=== PATIENT | female | born 1995 | race Caucasian/White ===

== ENCOUNTER 2016-04-04 22:07 | Emergency (ER) | payer OTHER ==
[~2016-04-04] VITALS: Ht 121.9 cm; Wt 60.0 kg
[~2016-04-04 22:07] MED LIST: BUSP10TA2 PO; LURA40TA PO; NIFE10CA19 PO; PRENAT PO
[2016-04-04 22:34] VITALS: Ht 121.9 cm; Wt 60.0 kg
[2016-04-04] MEDS ORDERED: SOD CHLORIDE 0.9% 1,000 ML IV STA (23:27)
[2016-04-04] MEDS ORDERED: CEFTRIAXONE 1 GM/50 ML (PMX) 50 ML IVPB STA (23:27)
[2016-04-04] MEDS ORDERED: morphine 4 MG/ML VIAL IV STA (23:27)
[2016-04-04] MEDS ORDERED: ONDANSETRON 4 MG INJ IV STA (23:27)
[2016-04-05 00:14] LABS: ADD UMIC NO; URINE BILIRUBIN (Dip) NEGATIVE (NEGATIVE); URINE BLOOD (Dip) NEGATIVE (NEGATIVE); URINE COLOR LT. YELLOW (YELLOW); URINE GLUCOSE (Dip) NEGATIVE (NEGATIVE); URINE KETONES (Dip) NEGATIVE (NEGATIVE); URINE LEUKOCYTE ESTERASE (Dip) NEGATIVE (NEGATIVE); URINE NITRITE (Dip) NEGATIVE (NEGATIVE); URINE TOTAL PROTEIN (Dip) NEGATIVE (NEGATIVE); URINE UROBILINOGEN (Dip) 0.2 E.U./dL (0.1-1.0)
[2016-04-05 00:16] LABS: INR 0.92; PARTIAL THROMBOPLASTIN TIME 25.6 Sec (25.0-35.0); POTASSIUM 3.8 mmol/L (3.5-5.1); PROTIME 12.4 Sec (12.2-14.2)
[2016-04-05 00:19] LABS: CREATININE 0.65 mg/dl (0.44-1.00)
[2016-04-05 00:20] LABS: CALCIUM 9.5 mg/dl (8.4-10.2)
[2016-04-05 00:26] LABS: BASOPHIL # 0.1 10^3/ul (0.0-0.1); BASOPHILS % 0.6 % (0.0-2.0); EOSINOPHILS # 0.2 10^3/ul (0.0-0.5); HEMATOCRIT 38.4 % (37.0-47.0); HEMOGLOBIN 13.2 g/dl (12.0-16.0); LYMPHOCYTES # 3.4 10^3/ul (0.8-2.9); LYMPHOCYTES % 21.6 % (18.0-55.0); MEAN CORPUSCULAR HGB CONC 34.4 g/dl (32.0-37.0); MEAN CORPUSCULAR VOLUME 90.3 fl (72.0-104.0); MEAN PLATELET VOLUME 8.8 fl (7.4-10.4); MONOCYTE # 1.3 10^3/ul (0.3-0.9); NEUTROPHIL # 10.9 10^3/ul (1.6-7.5); NEUTROPHILS % 68.8 % (30.0-74.0); PLATELET COUNT 317 10^3/UL (140-440); RED BLOOD COUNT 4.25 10^6/ul (4.20-5.40); RED CELL DISTRIBUTION WIDTH 13.4 % (11.5-14.5); UNCORRECTED WBC 15.9 10^3/ul (4.8-10.8); WHITE BLOOD COUNT 15.9 10^3/ul (4.8-10.8)
[2016-04-05 00:30] LABS: CONDITION 1
[2016-04-05] MEDS ORDERED: morphine 4 MG/ML VIAL IV STA (00:50)
[2016-04-05] MEDS ORDERED: IOHEXOL 300MG/ML 150 ML BTL ONE (00:57)
[2016-04-05] MEDS ORDERED: SOD CHLORIDE 0.9% 100 ML ONE (00:57)
--- NOTE | 2016-04-05 01:39 | RADRPT ---
PROCEDURE: CT ABDOMEN/PELVIS WITH CONTRAST CLINICAL INDICATION: 20-year-old female with flank pain. TECHNIQUE: The study was performed utilizing a GE [employer] VCT 64-slice CT scanner. Direct axia l sections were obtained through the abdomen and pelvis with the use of 100 cc of Omnipaque-300 eduardo onic intravenous contrast material. Sagittal and coronal reformations were obtained. Automated expos ure control and iterative reconstruction techniques were utilized for this examination. The images were reviewed on a PACS workstation. CTD/vol = 6.0 mGy; Total Exam DLP = 328.8 mGy.cm. COMPARISON: Ultrasound pelvis April 05, 2016 at 01:09 a.m. FINDINGS: There is trace bibasilar subsegmental atelectasis. There is no evidence for significant pleural eff usion. The liver has a normal size and contour without focal areas of abnormal density or contrast enhancement. No intrahepatic nor extrahepatic biliary ductal dilatation is seen. The gallbladder dem onstrates no wall thickening nor pericholecystic fluid. No biliary stones are evident. The pancreas is without areas of abnormal attenuation or contrast enhancement. This spleen is identified and has a normal size without abnormal density or contrast enhancement. The adrenal glands are unremarkable . The kidneys are functional bilaterally without abnormal density. No hydroureteronephrosis nor neph roureterolithiasis is evident. The urinary bladder contains urine. There is mild retained stool with in the colon without obstruction. The appendix is visualized and is without edema or surrounding inf lammatory reaction. There is a partially collapsed right ovarian cyst measuring approximately 1.5 x 1.6 x 2.0 cm. There is mild pelvic free fluid. The aortoiliac vessels are without aneurysmal dilata tion. The osseous structures are intact. IMPRESSION: 1. Mild retained stool without obstruction. 2. No CT evidence for appendicitis. 3. Partially collapsed right ovarian cyst. 4. Mild pelvic free fluid. .Sloan Barnes MD, Date Time Electronically viewed and signed by .Sloan Barnes MD, MD on 04/05/2016 01:38 .M/
--- NOTE | 2016-04-05 01:41 | RADRPT ---
PROCEDURE: ULTRASOUND PELVIS CLINICAL INDICATION: 20-year-old female with pelvic pain. TECHNIQUE: Multiple sonographic images of the pelvis were obtained utilizing a transabdominal and endovaginal technique. The images were reviewed on a PACS workstation. COMPARISON: None. FINDINGS: The uterus is visualized and measures 7.4 x 3.7 x 5.7 cm. The endometrial echo complex is within nor mal limits and measures 7.0 mm. There is trace fluid within the endometrial canal. There is minimal pelvic free fluid. The right ovary has a normal echotexture and measures 3.1 x 2.0 x 2.3 cm. The l eft ovary has a normal echotexture and measures 4.0 x 2.2 x 2.8 cm. There is flow identified within the ovaries bilaterally. No adnexal masses are noted. IMPRESSION: Minimal pelvic free fluid.. .Sloan Barnes MD, Date Time Electronically viewed and signed by .Sloan Barnes MD, on 04/05/2016 01:41 .Melissa/
--- NOTE | 2016-04-05 01:55 | ERD ---
ER Documentation Chief Complaint Date/Time DATE: 04/04/16 Chief Complaint Flank pain HPI The patient is a 20-year-old female who presents to the Emergency Department with complaint of flank pain. The patient reports that her symptoms began yesterday, with onset of left-sided flank pain, dysuria, urinary frequency, urinary urgency and hesitancy. Upon waking up this morning, she noted pain to the right flank as well. She reports a history of pyelonephritis, for which she has been admitted the past, and feels as if her symptoms are similar. Therefore, she presented to the Emergency Department at [facility], at which time a urinalysis was performed, and she was subsequently discharged home with diagnosis of "urinary tract infection" and with a prescription for Clindamycin. However, upon returning home, she noted continued flank pain, and therefore returned to the ED, as she is concerned that she has pyelonephritis, and for pain control. She denies any hematuria or vaginal bleeding. Denies new vaginal discharge. Denies any fevers, vomiting, diarrhea. She rates her current pain as 7/10, though she has not yet taken any medication for pain relief. ROS All systems reviewed and are negative except as per history of present illness. Medications Home Meds Active Scripts Ibuprofen* (Motrin*) 600 Mg Tab, 600 MG PO Q6, #20 TAB Prov:JAQUELINE MARES PA-C 04/05/16 Phenazopyridine Hcl* (Pyridium*) 200 Mg Tab, 200 MG PO TID Y for URINARY PAIN for 2 Days, #6 TAB Prov:JAQUELINE MARES PA-C 04/05/16 Cephalexin* (Keflex*) 500 Mg Capsule, 500 MG PO QID for 7 Days, CAP Prov:JAQUELINE MARES PA-C 04/05/16 Hydrocodone/Acetaminophen ([place] 5-325 Tablet) 1 Each Tablet, 1 EACH PO Q6, #10 TAB Prov:JAQUELINE MARES PA-C 04/05/16 Reported Medications Nifedipine* (Procardia*) 10 Mg Capsule, 10 MG PO Q6, CAP 05/29/15 Multivit/Min/Fol Ac/Iron/Pren* ( S*) 1 Tab Tab, 1 TAB PO DAILY, TAB 05/17/15 Buspirone Hcl* (Buspirone Hcl*) 10 Mg Tab, 20 MG PO BID, TAB 05/17/15 Lurasidone Hcl (LATUDA) 40 Mg Tablet, 60 MG PO HS Y for BIPOLAR for 7 Days, TAB 03/29/15 Allergies Allergies: Coded Allergies: No Known Drug Allergies (Unverified Allergy, Unknown, 05/29/15) PMhx/Soc Anesthesia Reaction: No Hx Neurological Disorder: No Hx Respiratory Disorders: Yes (exercise induced asthma) Hx Cardiac Disorders: No Hx Psychiatric Problems: Yes (depression) Hx Miscellaneous Medical Probl: Yes (Pyelonephritis, sepsis) Hx Alcohol Use: No Hx Substance Use: No Hx Tobacco Use: Yes Smoking Status: Current every day smoker Physical Exam Vitals Vital Signs Date Time Temp Pulse Resp B/P Pulse Ox O2 Delivery O2 Flow Rate FiO2 04/05/16 02:08 98.1 77 18 103/53 99 Room Air 04/04/16 22:34 98.7 71 20 113/59 98 Physical Exam GENERAL: Well-developed, well-nourished, in no acute distress. HEENT: Head is normocephalic, atraumatic. No scleral pallor or icterus. Pupils equal, round and reactive to light. Conjunctiva pink. Moist mucous membranes. NECK: Supple. No masses, no tenderness, no lymphadenopathy. RESPIRATORY: Lungs are clear to auscultation bilaterally. Equal breath sounds. Normal expiratory effort. CARDIOVASCULAR: Regular rate and rhythm. S1 and S2 normal. No murmurs, rubs, or gallops. GASTROINTESTINAL: Abdomen is soft, and nondistended. Minimal tenderness to palpation over the suprapubic abdomen. No guarding, no rebound tenderness. Normal bowel sounds. No abdominal bruits. No gross peritonitis. No masses or organomegaly. FLANK: Left-sided CVA tenderness. No masses or swelling. BACK: No midline tenderness. No paraspinal tenderness. Spine curve normal. No deformities. EXTREMITIES: No clubbing, cyanosis, or edema. Normal skin perfusion. Moving all extremities. Muscle tone is normal. No focal swelling or erythema. Distal pulses are palpable, 2+ bilaterally. Capillary refill is less than 2 seconds. NEUROLOGIC: The patient is alert, awake, and oriented x 3. No focal neurologic deficits. Speech is normal. INTEGUMENT: Skin is clean, dry and intact. No rashes, lesions or petechiae present. Normal turgor. PSYCHIATRIC: Appropriate; Cooperative. Result Diagram: 04/04/16 2346 04/04/16 2346 Results 24 hrs Laboratory Tests Test 04/04/16 23:40 04/04/16 23:46 Urine Bilirubin NEGATIVE Urine Clarity CLEAR Urine Color LT. YELLOW Urine Glucose NEGATIVE% Urine Hemoglobin NEGATIVE Urine Ketones NEGATIVE Urine Leukocyte Esterase NEGATIVE Urine Nitrite NEGATIVE Urine Specific [place] >=1.030 Urine Total Protein NEGATIVE Urine Urobilinogen 0.2 E.U./dL Urine pH 6.0 Activated Partial Thromboplast Time 25.6Sec Anion Gap 18 Basophils # 0.110^3/ul Basophils % 0.6% Blood Urea Nitrogen 10mg/dl Calcium Level 9.5mg/dl Carbon Dioxide Level 26mmol/L Chloride Level 103mmol/L Creatinine 0.65mg/dl Eosinophils # 0.210^3/ul Eosinophils % 1.0% Glucose Level 87mg/dl Hematocrit 38.4% Hemoglobin 13.2g/dl INR International Normalized Ratio 0.92 Lipase 88U/L Lymphocytes # 3.410^3/ul Lymphocytes % 21.6% Mean Corpuscular Hemoglobin 31.0pg Mean Corpuscular Hemoglobin Concent 34.4g/dl Mean Corpuscular Volume 90.3fl Mean Platelet Volume 8.8fl Monocytes # 1.310^3/ul Monocytes % 8.0% Neutrophils # 10.910^3/ul Neutrophils % 68.8% Nucleated Red Blood Cells # 0.010^3/ul Nucleated Red Blood Cells % 0.0/100WBC Platelet Count 98193^3/UL Potassium Level 3.8mmol/L Prothrombin Time 12.4Sec Prothrombin Time Ratio 1.0 Red Blood Count 4.2510^6/ul Red Cell Distribution Width 13.4% Sodium Level 143mmol/L White Blood Count 15.910^3/ul Current Medications Medications (Trade) Dose Ordered Sig/Abida Route PRN Reason Start Time Stop Time Status Last Admin Dose Admin Sodium Chloride (NS) 1,000 ml @ 1,000 mls/hr Q1H STAT IV 04/04/16 23:27 04/05/16 00:26 DC 04/04/16 23:42 Morphine Sulfate (morphine) 4 mg ONCE STAT IV 04/04/16 23:27 04/04/16 23:29 DC 04/04/16 23:43 Ondansetron HCl 4 mg 4 mg ONCE STAT IV 04/04/16 23:27 04/04/16 23:29 DC 04/04/16 23:42 Ceftriaxone Sodium (Rocephin) 50 ml @ 100 mls/hr ONCE STAT IVPB 04/04/16 23:27 04/04/16 23:56 DC 04/04/16 23:44 Morphine Sulfate 4 mg 4 mg ONCE STAT IV 04/05/16 00:50 04/05/16 00:51 DC 04/05/16 01:01 Sodium Chloride (NS) 100 ml @ ud STK-MED ONCE .ROUTE 04/05/16 00:57 04/05/16 00:58 DC 04/05/16 01:24 Iohexol (Omnipaque 300mg/ ml) 150 ml STK-MED ONCE .ROUTE 04/05/16 00:57 04/05/16 00:58 DC 04/05/16 01:24 Procedures/MDM The patient's case was reviewed and discussed with Dr. Reilly, who agrees with the plan of care including labs, treatment and advanced imaging as appropriate. DIAGNOSTIC TESTS AND INTERPRETATION: PROCEDURE: CT ABDOMEN/PELVIS WITH CONTRAST CLINICAL INDICATION: 20-year-old female with flank pain. TECHNIQUE: The study was performed utilizing a [employer] VCT 64-slice CT scanner. Direct axial sections were obtained through the abdomen and pelvis with the use of 100 cc of Omnipaque-300 nonionic intravenous contrast material. Sagittal and coronal reformations were obtained. Automated exposure control and iterative reconstruction techniques were utilized for this examination. The images were reviewed on a PACS workstation. CTD/vol = 6.0 mGy; Total Exam DLP = 328.8 mGy.cm. COMPARISON: Ultrasound pelvis April 05, 2016 at 01:09 a.m. FINDINGS: There is trace bibasilar subsegmental atelectasis. There is no evidence for significant pleural effusion. The liver has a normal size and contour without focal areas of abnormal density or contrast enhancement. No intrahepatic nor extrahepatic biliary ductal dilatation is seen. The gallbladder demonstrates no wall thickening nor pericholecystic fluid. No biliary stones are evident. The pancreas is without areas of abnormal attenuation or contrast enhancement. This spleen is identified and has a normal size without abnormal density or contrast enhancement. The adrenal glands are unremarkable. The kidneys are functional bilaterally without abnormal density. No hydroureteronephrosis nor nephroureterolithiasis is evident. The urinary bladder contains urine. There is mild retained stool within the colon without obstruction. The appendix is visualized and is without edema or surrounding inflammatory reaction. There is a partially collapsed right ovarian cyst measuring approximately 1.5 x 1.6 x 2.0 cm. There is mild pelvic free fluid. The aortoiliac vessels are without aneurysmal dilatation. The osseous structures are intact. IMPRESSION: 1. Mild retained stool without obstruction. 2. No CT evidence for appendicitis. 3. Partially collapsed right ovarian cyst. 4. Mild pelvic free fluid. .Sloan Barnes MD, Date Time Electronically viewed and signed by .Sloan Barnes MD, MD on 04/05/2016 01:38 PROCEDURE: ULTRASOUND PELVIS CLINICAL INDICATION: 20-year-old female with pelvic pain. TECHNIQUE: Multiple sonographic images of the pelvis were obtained utilizing a transabdominal and endovaginal technique. The images were reviewed on a PACS workstation. COMPARISON: None. FINDINGS: The uterus is visualized and measures 7.4 x 3.7 x 5.7 cm. The endometrial echo complex is within normal limits and measures 7.0 mm. There is trace fluid within the endometrial canal. There is minimal pelvic free fluid. The right ovary has a normal echotexture and measures 3.1 x 2.0 x 2.3 cm. The left ovary has a normal echotexture and measures 4.0 x 2.2 x 2.8 cm. There is flow identified within the ovaries bilaterally. No adnexal masses are noted. IMPRESSION: Minimal pelvic free fluid.. .Sloan Barnes MD, Date Time Electronically viewed and signed by .Sloan Barnes MD, on 04/05/2016 01:41 ED COURSE: The patient was stable throughout the ED course. IV access established by nursing staff. Laboratory work and diagnostic imaging was performed. The patient was given Morphine, Zofran and IV fluids. Rocephin 1 gram IV administered for presumed early UTI vs. pyelonephritis. Urine culture sent. On reevaluation the patient was resting comfortably, with no signs of acute distress. MEDICAL DECISION MAKING: This is a 20-year-old female presenting to the Emergency Department with dysuria, urinary frequency and urgency, and flank pain since yesterday. On physical examination, the patient had mild tenderness to palpation over the suprapubic abdomen. She had left-sided CVA tenderness. Otherwise, she was nontoxic in appearance, with no evidence of dehydration. She was afebrile, with no tachycardia, no tachypnea, no hypotension. The differential diagnosis includes, but is not limited to, urinary tract infection , renal abscess, perinephric abscess, urethritis, nephrolithiasis, salpingitis, cervicitis, pelvic inflammatory disease, diverticulitis, cystitis, cholecystitis , appendicitis, abdominal aortic aneurysm/dissection, pyelonephritis. Laboratory analysis revealed WBC 15,900. No severe anemia requiring transfusion. Electrolytes are within normal limits, no indication for replacement. BUN/creatinine and creatinine are normal, no prerenal azotemia or acute kidney injury. Urinalysis revealed no bloody, no nitrites, no urine leukocyte esterase. CT abdomen and pelvis revealed mild constipation, and a partially collapsed right ovarian cyst. Otherwise, no evidence of appendicitis , obstruction, abscess, obstructive uropathy. US with no evidence of torsion or abscess. Given that the patient presented with recent urinary symptoms and CVA tenderness , and given patient's history of pyelonephritis, there is concern that patient' s current symptoms are secondary to early urinary tract infection vs. early pyelonephritis. She was given 1 gram Rocephin IV in the ED for coverage. Urine culture sent. At this time, the patient is in stable condition, and therefore can be discharged home with a prescription for Keflex, Pyridium, ibuprofen and [place] and strict return precautions for signs of deteriorating or worsening condition. The patient is advised to follow up with her primary care provider within 2-3 days for re-evaluation and further management, or return to the ER sooner for any worsening symptoms. I shared all laboratory results, medical decision making and plan with the patient at length and in great detail , and the patient verbally understands and agrees with the plan for further observation and care as an outpatient. At the time of discharge, all questions were answered. Departure Diagnosis: Primary Impression: Flank pain Additional Impressions: Dysuria Right ovarian cyst Condition: Stable Patient Instructions: Dysuria, Flank Pain, Uncertain Cause Additional Instructions: Call your primary care doctor TOMORROW for an appointment during the next 1-2 days.See the doctor sooner or return here if your condition worsens before your appointment time. JAQUELINE MARES PA-C Apr 05, 2016 01:55
[2016-04-05] MEDS ORDERED: HYDR-906 PO (01:56)
[2016-04-05] MEDS ORDERED: CEPH-443 PO (01:57)
[2016-04-05] MEDS ORDERED: IBUP-1542 PO (01:57)
[2016-04-05] MEDS ORDERED: PHEN-538 PO (01:57)
[2016-04-05 02:08] VITALS: BP 103/53
== END 2016-04-05 02:08 | disposition home or self-care (01) ==
LOC: FTE 22:07
DX: R10.9 Unspecified abdominal pain (principal); R30.0 Dysuria; N83.201 Unspecified ovarian cyst, right side; F17.210 Nicotine dependence, cigarettes, uncomplicated; R10.2 Pelvic and perineal pain
CPT/HCPCS: 36415; 74177; 76856; 80048; 81003; 83690; 85025; 85610; 85730; 87086; 96361; 96365; 96375; 96376; J0696; J2270; J2405; J7030; Q9967; Z7502; Z7610

== ENCOUNTER 2016-04-17 18:43 | Emergency (ER) | payer OTHER ==
[~2016-04-17] VITALS: Ht 162.6 cm; Wt 54.5 kg
[~2016-04-17 18:43] MED LIST changes: +CEPH-443 PO; +HYDR-906 PO; +IBUP-1542 PO; +PHEN-538 PO
[2016-04-17 18:50] VITALS: Ht 162.6 cm; Wt 54.5 kg
[2016-04-17] MEDS ORDERED: ONDANSETRON 4 MG INJ IV STA ×2 (19:39→21:10)
[2016-04-17] MEDS ORDERED: KETOROLAC 30 MG INJ IV STA (19:39)
[2016-04-17] MEDS ORDERED: SOD CHLORIDE 0.9% 1,000 ML IV STA (19:39)
[2016-04-17 20:24] LABS: ADD UMIC NO; URINE BILIRUBIN (Dip) NEGATIVE (NEGATIVE); URINE BLOOD (Dip) NEGATIVE (NEGATIVE); URINE COLOR LT. YELLOW (YELLOW); URINE GLUCOSE (Dip) NEGATIVE (NEGATIVE); URINE KETONES (Dip) NEGATIVE (NEGATIVE); URINE LEUKOCYTE ESTERASE (Dip) NEGATIVE (NEGATIVE); URINE NITRITE (Dip) NEGATIVE (NEGATIVE); URINE TOTAL PROTEIN (Dip) NEGATIVE (NEGATIVE); URINE UROBILINOGEN (Dip) 0.2 E.U./dL (0.1-1.0)
[2016-04-17 20:29] LABS: ALBUMIN 4.9 g/dl (3.3-4.9)
[2016-04-17 20:30] LABS: POTASSIUM 3.6 mmol/L (3.5-5.1)
[2016-04-17 20:32] LABS: ALBUMIN/GLOBULIN RATIO 1.32; BILIRUBIN,INDIRECT 0.5 mg/dl (0-1.1); BILIRUBIN,TOTAL 0.5 mg/dl (0.2-1.3); CREATININE 0.76 mg/dl (0.44-1.00); TOTAL PROTEIN 8.6 g/dl (6.1-8.1)
[2016-04-17 20:33] LABS: CALCIUM 9.9 mg/dl (8.4-10.2)
[2016-04-17] MEDS ORDERED: DOCU-144 PO (21:09)
[2016-04-17] MEDS ORDERED: NITR-58 PO (21:09)
[2016-04-17] MEDS ORDERED: HYDR-902 PO (21:09)
[2016-04-17] MEDS ORDERED: morphine 4 MG/ML VIAL IV STA (21:10)
--- NOTE | 2016-04-17 21:16 | ERD ---
ER Documentation Chief Complaint Date/Time DATE: 04/17/16 TIME: 21:12 Chief Complaint painful urination, back pain HPI 20-year-old female history of pyelonephritis comes emergency room with painful urination as well as left-sided flank pain. Patient was discharged with Keflex about 12 days ago, previously she was seen at a different emergency room at [facility] and was started on the wrong antibiotics. She states that she was feeling better for several days and then her symptoms returned and she reports of nausea vomiting at home. She denies fevers, chills, she continues to have left-sided flank pain that is dull and achy, nonradiating, constant. ROS All systems reviewed and are negative except as per history of present illness. Medications Home Meds Active Scripts Docusate Sodium* (Colace*) 100 Mg Capsule, 100 MG PO TID, #30 CAP Prov:CHOCO AVILA PA-C 04/17/16 Hydrocodone/Acetaminophen ([place] 10-325 Tablet) 1 Each Tablet, 1 TAB PO Q6H Y for PAIN, #7 TAB Prov:CHOCO AVILA PA-C 04/17/16 Nitrofurantoin Monohyd Macrocr* (Macrobid*) 100 Mg Capsr, 100 MG PO BID for 7 Days, CAP Prov:CHOCO AVILA PA-C 04/17/16 Ibuprofen* (Motrin*) 600 Mg Tab, 600 MG PO Q6, #20 TAB Prov:JAQUELINE MARES PA-C 04/05/16 Phenazopyridine Hcl* (Pyridium*) 200 Mg Tab, 200 MG PO TID Y for URINARY PAIN for 2 Days, #6 TAB Prov:JAQUELINE MARES PA-C 04/05/16 Cephalexin* (Keflex*) 500 Mg Capsule, 500 MG PO QID for 7 Days, CAP Prov:JAQUELINE MARES PA-C 04/05/16 Hydrocodone/Acetaminophen ([place] 5-325 Tablet) 1 Each Tablet, 1 EACH PO Q6, #10 TAB Prov:JAQUELINE MARES PA-C 04/05/16 Reported Medications Nifedipine* (Procardia*) 10 Mg Capsule, 10 MG PO Q6, CAP 05/29/15 Multivit/Min/Fol Ac/Iron/Pren* ( S*) 1 Tab Tab, 1 TAB PO DAILY, TAB 05/17/15 Buspirone Hcl* (Buspirone Hcl*) 10 Mg Tab, 20 MG PO BID, TAB 05/17/15 Lurasidone Hcl (LATUDA) 40 Mg Tablet, 60 MG PO HS Y for BIPOLAR for 7 Days, TAB 03/29/15 Allergies Allergies: Coded Allergies: No Known Drug Allergies (Unverified Allergy, Unknown, 05/29/15) PMhx/Soc Anesthesia Reaction: No Hx Neurological Disorder: No Hx Respiratory Disorders: Yes (exercise induced asthma) Hx Cardiac Disorders: No Hx Psychiatric Problems: Yes (depression, anxiety) Hx Miscellaneous Medical Probl: Yes (Pyelonephritis, sepsis) Hx Alcohol Use: No Hx Substance Use: No Hx Tobacco Use: Yes Smoking Status: Never smoker Physical Exam Vitals Vital Signs Date Time Temp Pulse Resp B/P Pulse Ox O2 Delivery O2 Flow Rate FiO2 04/17/16 18:50 98.4 72 20 155/62 100 Physical Exam General: Well-developed, well-nourished. The patient appears in no acute distress. HEENT: Head is normocephalic, atraumatic. No scleral icterus. Neck: Supple. Nontender. Lungs: Clear to auscultation. Normal air movement. Heart: Regular rate and rhythm. S1 and S2 are normal. No murmurs, gallops, or rubs. Abdomen: Soft, suprapubic tenderness, nondistended. Bowel sounds are normoactive. No McBurney's tenderness, negative [place] sign. Back: Mild CVA tenderness on left, no midline tenderness. Extremities: No clubbing or cyanosis. Normal pulses. Moving extremities x 4. No weakness. Neurologic: Alert and oriented 3. No focal deficits. Skin: Normal turgor. No rash or lesions. Result Diagram: 04/17/161956 Results 24 hrs Laboratory Tests Test 04/17/16 19:55 04/17/16 19:57 Urine Bilirubin NEGATIVE Urine Clarity CLEAR Urine Color LT. YELLOW Urine Glucose NEGATIVE% Urine Hemoglobin NEGATIVE Urine Ketones NEGATIVE Urine Leukocyte Esterase NEGATIVE Urine Nitrite NEGATIVE Urine Specific [place] >=1.030 Urine Total Protein NEGATIVE Urine Urobilinogen 0.2 E.U./dL Urine pH 5.5 Alanine Aminotransferase (ALT/SGPT) 31IU/L Albumin 4.9g/dl Albumin/Globulin Ratio 1.32 Alkaline Phosphatase 71IU/L Anion Gap 20 Aspartate Amino Transf (AST/SGOT) 22IU/L Blood Urea Nitrogen 13mg/dl Calcium Level 9.9mg/dl Carbon Dioxide Level 27mmol/L Chloride Level 101mmol/L Creatinine 0.76mg/dl Direct Bilirubin 0.00mg/dl Globulin 3.70g/dl Glucose Level 97mg/dl Indirect Bilirubin 0.5mg/dl Potassium Level 3.6mmol/L Sodium Level 144mmol/L Total Bilirubin 0.5mg/dl Total Protein 8.6g/dl Current Medications Medications (Trade) Dose Ordered Sig/Abida Route PRN Reason Start Time Stop Time Status Last Admin Dose Admin Sodium Chloride (NS) 1,000 ml @ 1,000 mls/hr Q1H STAT IV 04/17/16 19:39 04/17/16 20:38 DC 04/17/16 20:16 Ondansetron HCl (Zofran Inj) 4 mg ONCE STAT IV 04/17/16 19:39 04/17/16 19:41 DC 04/17/16 20:15 Ketorolac Tromethamine (Toradol) 30 mg ONCE STAT IV 04/17/16 19:39 04/17/16 19:41 DC 04/17/16 20:15 Morphine Sulfate (morphine) 4 mg ONCE STAT IV 04/17/16 21:10 04/17/16 21:12 DC Ondansetron HCl (Zofran Inj) 4 mg ONCE STAT IV 04/17/16 21:10 04/17/16 21:12 DC Procedures/MDM ED course: Patient was given fluids, Toradol 30 mg IV, Zofran 4 mg IV. She states that her pain did not improve much and therefore was given morphine 4 mg and Zofran 4 mg IV. I reviewed her old medical records, urine culture does show positive E. coli, sensitivity to cephalosporins as well as Macrobid. MDM: A 20-year-old female comes in with symptoms of possibly pyelonephritis, she does not have a fever, however she has been having some nausea vomiting at home. She was given fluids, as well as pain medication and she was reporting to be feeling much better. She has had a urinalysis that does not show evidence of infection however may be due to the recent intake of Keflex. She will be given Macrobid to be taken at home, as well as [place] for pain. CT of the abdomen and pelvis was done at previous visit that showed a right ovarian cyst, no evidence of nephrolithiasis, and noted to have constipation and therefore patient will also be given Colace as her pain may also be related to the constipation. She did state that she was feeling better for some time and her pain returned, this may be a new infection as well. Given that she is well-appearing, nontoxic I believe that the patient is appropriate to be discharged. Departure Diagnosis: Primary Impression: Flank pain Additional Impression: Constipation Condition: Good Patient Instructions: Constipation (Adult), Flank Pain, Uncertain Cause CHOCO AVILA PA-C Apr 17, 2016 21:16
[2016-04-17 22:52] VITALS: BP 107/52
[2016-04-17 23:21] LABS: HEMATOCRIT 43.7 % (37.0-47.0); HEMOGLOBIN 14.6 g/dl (12.0-16.0); MEAN CORPUSCULAR HEMOGLOBIN 30.9 pg (29.0-33.0); MEAN CORPUSCULAR VOLUME 92.6 fl (72.0-104.0); RED BLOOD COUNT 4.72 10^6/ul (4.20-5.40)
[2016-04-17 23:22] LABS: BASOPHIL # 0.1 10^3/ul (0.0-0.1); BASOPHILS % 0.5 % (0.0-2.0); EOSINOPHILS # 0.2 10^3/ul (0.0-0.5); EOSINOPHILS % 1.4 % (0.0-7.0); LYMPHOCYTES # 3.3 10^3/ul (0.8-2.9); LYMPHOCYTES % 30.1 % (18.0-55.0); MEAN CORPUSCULAR HGB CONC 33.4 g/dl (32.0-37.0); MONOCYTE # 1.2 10^3/ul (0.3-0.9); MONOCYTES % 10.5 % (0.0-13.0); NEUTROPHIL # 6.3 10^3/ul (1.6-7.5); PLATELET COUNT 347 10^3/UL (140-440)
== END 2016-04-17 22:53 | disposition home or self-care (01) ==
LOC: FTE 18:43
DX: R10.30 Lower abdominal pain, unspecified (principal); K59.00 Constipation, unspecified; R11.2 Nausea with vomiting, unspecified; J45.909 Unspecified asthma, uncomplicated; Z87.891 Personal history of nicotine dependence
CPT/HCPCS: 36415; 80053; 81003; 85025; 87086; 96374; 96375; 96376; J1885; J2270; J2405; J7030; Z7502

== ENCOUNTER 2016-04-25 08:40 | Emergency (ER) | payer OTHER ==
[~2016-04-25] VITALS: Wt 59.0 kg
[~2016-04-25 08:40] MED LIST changes: +DOCU-144 PO; +HYDR-902 PO; +NITR-58 PO
[2016-04-25] MEDS ORDERED: ONDANSETRON (ODT) 4 MG TAB ODT STA (09:13)
[2016-04-25 09:31] LABS: URINE BLOOD (Dip) POC Trace-intact (NEGATIVE)
[2016-04-25] MEDS ORDERED: SOD CHLORIDE 0.9% 1,000 ML IV STA (09:50)
[2016-04-25] MEDS ORDERED: MECLIZINE 12.5 MG TAB PO ONE (11:30)
--- NOTE | 2016-04-25 11:36 | RADRPT ---
PROCEDURE: CT Brain without contrast. CLINICAL INDICATION: Dizziness. TECHNIQUE: A CT of the brain without contrast was performed utilizing axial sections from the skul l base through the vertex. The patient was scanned without intravenous contrast enhancement. Sagitta l and coronal reformatted images were obtained using the data from the axial images. Total exam DLP is 451.49 mGy-cm. CTDIvol is 32.25 mGy. One or more of the following dose reduction techniques we re used: Automated exposure control, adjustment of the mA and/or kV according to patient size, use o f iterative reconstruction technique. COMPARISON: None available FINDINGS: There is normal wyatt-white matter differentiation. The ventricles and cisterns are normal. There is no intracranial hemorrhage or space-occupying lesion. There is no skull fracture or lytic lesion. IMPRESSION: 1. Normal noncontrast CT scan of the brain. RPTAT: QQ .Alo Car MD, MD Date Time Electronically viewed and signed by .Alo Car MD, MD on 04/25/2016 11:36 .R/
[2016-04-25] MEDS ORDERED: ONDA4TAB8 PO (11:47)
[2016-04-25] MEDS ORDERED: MECL12.574 PO (11:47)
[2016-04-25 12:34] VITALS: BP 125/63
--- NOTE | 2016-04-25 14:31 | ERD ---
DATE OF SERVICE: 04/25/2016 HISTORY OF PRESENT ILLNESS: The patient is a 20-year-old female coming in complaining of cough, con gestion, sore throat. She is also complaining of dizziness and vomiting. She denies any abdominal pain. She denies fevers. She recently had a urinary tract infection and was given antibiotics. Sh e states that her symptoms have improved. She has no back pain and no dysuria or urinary frequency. She has been taking Keflex. Denies any changes in bowel movements and no vomiting. MEDICAL HISTORY: Depression with no suicidal or homicidal ideations. ALLERGIES TO MEDICATIONS: DENIES. PAST SURGICAL HISTORY: . SOCIAL HISTORY: Smokes 3 cigarettes a day. REVIEW OF SYSTEMS: A 12-point review of systems was done. Refer to HPI for positives, all other sy stems negative. PHYSICAL EXAMINATION VITAL SIGNS: Temperature is 98.8, pulse 94, blood pressure is 131/57, respiratory 20, O2 saturation 100% on room air. Pain intensity 6/10. GENERAL: The patient is well-appearing, well-nourished, no acute distress. HEENT: Atraumatic. Conjunctivae are pink. Pupils equal, round, and reactive to light. There is no s cleral icterus. Tympanic membranes clear bilaterally. Oropharynx clear. No nystagmus or photophobia . NECK: C-spine is soft and supple. There is no meningismus. There is no cervical lymphadenopathy. No JVD. No bruits. No goiter. CHEST: Clear to auscultation bilaterally. There are no rales, wheezes or rhonchi. HEART: Regular rate and rhythm. No murmurs, clicks, rubs or gallops. No S3 or S4. ABDOMEN: Soft, nontender and nondistended. Good bowel sounds. No rebound or guarding. No gross angel tonitis. No gross organomegaly or masses. No Alcantara sign or McBurney point tenderness. NEURO: Alert and oriented. Cranial nerves 2-12 intact. Motor strength in all 4 extremities with 5/5 strength. Sensation grossly intact. Normal speech and gait. Babinski negative. DTR 2+ throughout. SKIN: There is no apparent rash or petechia. The skin is warm and dry. EMERGENCY ROOM COURSE: The patient had a urine dip checked in the ER. Patient's urine showed negat jaguar leukocytes, negative nitrites, trace blood, negative ketones, negative glucose, negative protein . The patient had a brain CT done in the ER which showed normal noncontrast CT scan of the brain. Patient was given a liter of normal saline, Zofran and p.o. challenge, which she passed and meclizin e. Patient's vitals were reassessed at the time of departure. Pulse is 80 beats per minute and blo od pressure was 125/63, oxygen saturation 100% on room air. Pain intensity of 2/10. Patient's symp toms improved. The patient had an EKG done in the ER as well which was 70 beats per minute, normal right axis, no ST elevations or T-wave inversions, no QT prolongations. DIAGNOSES: 1. Vomiting. 2. Dizziness. 3. Upper respiratory infection. MEDICAL DECISION MAKING: I have low suspicion for intracranial hemorrhage or mass effect. I have l ow suspicion for neuro deficits. I have low suspicion for meningitis or sepsis and low suspicion fo r bacterial HEENT infection or pneumonia. I have low suspicion for pyelo or other acute abdominal e tiologies. I did not feel that there is indication of imaging for the abdomen as patient's exam is within normal limits and the patient is tolerating p.o. DISCHARGE: The patient is discharged stable. Patient given prescription for Zofran and meclizine a nd told to follow up with primary care within 1 to 2 days for reevaluation. The patient was told if symptoms progress or worsen to return to the ER. All other questions answered at time of discharge . Discharge summary given at the time of departure. Patient understood and complied with plan. Reviewed and signed off by Dr. Almodovar. Dictated By: CYNTHIA RODRIGUEZ for YAN KING/NTS Conf#: [id number] DID#: [id number]
== END 2016-04-25 12:35 | disposition home or self-care (01) ==
LOC: FTE 08:40
DX: R11.10 Vomiting, unspecified (principal); R42 Dizziness and giddiness; J06.9 Acute upper respiratory infection, unspecified
CPT/HCPCS: 70450; 81003; 93005; J7030; Z7502; Z7610

== ENCOUNTER 2016-05-24 07:17 | Emergency (ER) | payer OTHER ==
[~2016-05-24] VITALS: Ht 149.9 cm; Wt 56.2 kg
[~2016-05-24 07:17] MED LIST changes: +MECL12.574 PO; +ONDA4TAB8 PO
[2016-05-24 07:20] VITALS: Ht 149.9 cm; Wt 56.2 kg
[2016-05-24] MEDS ORDERED: SOD CHLORIDE 0.9% 500 ML IV STA (07:51)
[2016-05-24] MEDS ORDERED: ONDANSETRON 4 MG INJ IV STA (07:51)
[2016-05-24] MEDS ORDERED: ACETAMINOPHEN 500 MG TAB PO STA (07:51)
[2016-05-24] MEDS ORDERED: IBUPROFEN 600 MG TAB PO ONE (08:00)
--- NOTE | 2016-05-24 08:05 | ERD ---
ER Documentation Chief Complaint Date/Time DATE: 05/24/16 TIME: 07:57 Chief Complaint FEVER, COUGH, CONGESTION, VOMITING, X3 DAYS HPI Patient is a 20-year-old female with a past medical history of anxiety, depression, asthma, "pseudoseizures" who presents the emergency department with numerous concerns including fever, cough, congestion and posttussive vomiting. Patient states that her symptoms started approximately 3 days ago. Patient states that her cough is dry in nature. Patient states that she has clear rhinorrhea. Patient does reports 2 episodes of posttussive vomiting this morning. Patient reports a temperature of 101 Fahrenheit yesterday. She states she took Tylenol at 3 AM today. Patient states that her kids were sick and she is unsure if she got something from her kids. Patient states her last menstrual period was in 05/10/2016. Patient admits to generalized body aches and a mild headache. Patient denies flu vaccination. ROS All systems reviewed and are negative except as per history of present illness. Medications Home Meds Active Scripts Oseltamivir Phosphate* (Tamiflu*) 75 Mg Capsule, 75 MG PO BID for 5 Days, CAP Prov:KATHLEEN CHRISTENSEN PA-C 05/24/16 Acetaminophen* (Tylophen*) 500 Mg Capsule, 2 CAP PO Q8H Y for PAIN AND OR ELEVATED TEMP, #20 CAP Prov:KATHLEEN CHRISTENSEN PA-C 05/24/16 Albuterol Sulfate* (Proair HFA*) 8.5 Gm Hfa.aer.ad, 2 PUFF INH Q4H Y for WHEEZING AND SOB, #1 INHALER Prov:KATHLEEN CHRISTENSEN PA-C 05/24/16 Guaifenesin* (Robitussin*) 100 Mg/5 Ml Syrup, 100 MG PO Q6H Y for COUGH, #1 BOTTLE Prov:KATHLEEN CHRISTENSEN PA-C 05/24/16 Ondansetron Hcl* (Zofran*) 4 Mg Tablet, 4 MG PO Q6H for NAUSEA AND/OR VOMITING, #30 TAB Prov:RAKESH SALDVIAR PA-C 04/25/16 Meclizine Hcl* (Antivert*) 12.5 Mg Tab, 12.5 MG PO Q6H Y for DIZZINESS, #20 TAB Prov:RAKESH SALDIVARC 04/25/16 Docusate Sodium* (Colace*) 100 Mg Capsule, 100 MG PO TID, #30 CAP Prov:CHOCO AVILA PA-C 04/17/16 Hydrocodone/Acetaminophen ([place] 10-325 Tablet) 1 Each Tablet, 1 TAB PO Q6H Y for PAIN, #7 TAB Prov:CHOCO AVILA PA-C 04/17/16 Nitrofurantoin Monohyd Macrocr* (Macrobid*) 100 Mg Capsr, 100 MG PO BID for 7 Days, CAP Prov:CHOCO AVILA PA-C 04/17/16 Ibuprofen* (Motrin*) 600 Mg Tab, 600 MG PO Q6, #20 TAB Prov:JAQUELINE MARES PA-C 04/05/16 Phenazopyridine Hcl* (Pyridium*) 200 Mg Tab, 200 MG PO TID Y for URINARY PAIN for 2 Days, #6 TAB Prov:JAQUELINE MARES PA-C 04/05/16 Cephalexin* (Keflex*) 500 Mg Capsule, 500 MG PO QID for 7 Days, CAP Prov:JAQUELINE MARES PA-C 04/05/16 Hydrocodone/Acetaminophen ([place] 5-325 Tablet) 1 Each Tablet, 1 EACH PO Q6, #10 TAB Prov:JAQUELINE MARES PA-C 04/05/16 Reported Medications Nifedipine* (Procardia*) 10 Mg Capsule, 10 MG PO Q6, CAP 05/29/15 Multivit/Min/Fol Ac/Iron/Pren* ( S*) 1 Tab Tab, 1 TAB PO DAILY, TAB 05/17/15 Buspirone Hcl* (Buspirone Hcl*) 10 Mg Tab, 20 MG PO BID, TAB 05/17/15 Lurasidone Hcl (LATUDA) 40 Mg Tablet, 60 MG PO HS Y for BIPOLAR for 7 Days, TAB 03/29/15 Allergies Allergies: Coded Allergies: No Known Drug Allergies (Unverified Allergy, Unknown, 05/29/15) PMhx/Soc Anesthesia Reaction: No Hx Neurological Disorder: No Hx Respiratory Disorders: Yes (exercise induced asthma) Hx Cardiac Disorders: No Hx Psychiatric Problems: Yes (depression, anxiety) Hx Miscellaneous Medical Probl: Yes (Pyelonephritis, sepsis) Hx Alcohol Use: No Hx Substance Use: No Hx Tobacco Use: Yes Smoking Status: Current every day smoker Fmx Family History: No diabetes Physical Exam Vitals Vital Signs Date Time Temp Pulse Resp B/P Pulse Ox O2 Delivery O2 Flow Rate FiO2 05/24/16 09:24 100.0 112 22 126/88 98 Room Air 05/24/16 07:20 102.0 116 20 117/78 98 Physical Exam GENERAL: Well-developed, well-nourished female. Appears in no acute distress. Making in full sentences. HEAD: Normocephalic, atraumatic. No deformities or ecchymosis. EYE: Pupils equal, round, and reactive to light. EOMs intact. No conjunctival erythema. No eye discharge. ENT: External ear without any masses or tenderness. Auditory canals clear bilaterally. TM visualized bilaterally, non-erythematous, non-bulging. Nasal mucosa pink with no discharge. Oropharynx is pink without any tonsillar erythema or exudates. No uvula deviation. No kissing tonsils. No bilateral mastoid process tenderness. NECK: Supple. No meningismus. Normal ROM of the neck. LUNG: Clear to auscultation bilaterally. No rhonchi, wheezing, rales or coarse breath sounds. HEART: Regular rate and rhythm. No murmurs, rubs or gallops. ABDOMEN: Soft, nontender, and nondistended. Positive bowel sounds in all four quadrants. No rebound tenderness, no guarding. (-) McBurney's point tenderness. No CVA tenderness. BACK: No midline tenderness. EXTREMITES: Equal pulses bilaterally. No peripheral clubbing, cyanosis or edema. No unilateral leg swelling. NEUROLOGIC: Alert and oriented to person, place and time. Moving all four extremities. 5/5 strength in all extremities. Normal speech. Steady gait. (-) Brudzinski sign- no flexion of the hips and knees noted with neck flexion. Negative Kernig sign. Negative Brudzinski sign. SKIN: Normal color. Warm and dry. No rashes or lesions. Results 24 hrs Laboratory Tests Test 05/24/16 08:29 Bedside Urine Blood Negative Bedside Urine Glucose (UA) Negative Bedside Urine Ketones (LAB) Negative Bedside Urine Leukocyte Esterase (L Negative Bedside Urine Nitrite (LAB) Negative Bedside Urine Protein (LAB) Negative Bedside Urine pH (LAB) 7.0 Current Medications Medications (Trade) Dose Ordered Sig/Abida Route PRN Reason Start Time Stop Time Status Last Admin Dose Admin Sodium Chloride (NS) 500 ml @ 500 mls/hr Q1H STAT IV 05/24/16 07:51 05/24/16 08:50 DC 05/24/16 08:12 Ondansetron HCl (Zofran Inj) 4 mg ONCE STAT IV 05/24/16 07:51 05/24/16 07:54 DC 05/24/16 08:12 Acetaminophen (Tylenol Tab) 1,000 mg ONCE STAT PO 05/24/16 07:51 05/24/16 07:54 DC 05/24/16 08:12 Ibuprofen (Motrin) 600 mg ONCE ONCE PO 05/24/16 08:00 05/24/16 08:01 DC 05/24/16 08:12 Procedures/[facility] MEDICAL DECISION MAKING: This is a 20-year-old female who presents with fevers, cough, congestion, posttussive vomiting 3 days. Vital signs were reviewed. At initial presentation, patient was noted to have a temperature of 102 Fahrenheit. Patient was given Tylenol and ibuprofen here in the emergency department. Patient's temperature was noted to be down trending prior to discharge. Patient was also noted to be tachycardic at initial presentation. Patient was given IV fluids. Patient was not hypoxic. ENT exam was normal. Lung exam was normal. Abdominal exam was normal. Chest x-ray was negative. Urine dip was negative for acute infection or hematuria. Urine was negative. + Flu swab for Influenza A. Given these findings, the patient's presentation is most consistent with influenza. I have a much lower clinical concern for bacterial infections including pneumonia, meningitis, sinusitis, otitis externa , acute otitis media, strep pharyngitis, epiglottitis or peritonsillar abscess. PRESCRIPTIONS: Tamiflu, Tylenol, albuterol inhaler, Robitussin cough syrup DISCHARGE: At this time, patient is stable for discharge and outpatient management. Patient provided with a copy of flu swab results, CXR and urine results. Supportive therapies such as OTC throat lozenges, salt water gurgles, popsicles and jello discussed. I have instructed the patient to follow-up with his/her primary care physician in 1-2 days. I have instructed the patient to promptly return to the ER for any new or worsening symptoms including increased pain, swelling, fever, nausea, vomiting, weakness or difficulty breathing. The patient and/or family expressed understanding of and agreement with this plan. All questions were answered. Home care instructions were provided. Departure Diagnosis: Primary Impression: Influenza Condition: Stable Patient Instructions: Influenza (Adult) Referrals: [facility] Additional Instructions: Drink plenty of fluids. Supportive measures including humidifier use, OTC throat lozenges, Jell-O, soup advised. Call your primary care doctor TOMORROW for an appointment during the next 1-2 days.See the doctor sooner or return here if your condition worsens before your appointment time. KATHLEEN CHRISTENSEN PA-C May 24, 2016 08:04
[2016-05-24 08:26] LABS: URINE BLOOD (Dip) POC Negative (NEGATIVE)
--- NOTE | 2016-05-24 08:53 | RADRPT ---
PROCEDURE: Chest Radiograph. CLINICAL INDICATION: Cough TECHNIQUE: Single frontal chest radiograph. COMPARISON: None available FINDINGS: The cardiomediastinal silhouette is within normal limits. No infiltrate or effusion is seen. Th e bones are intact. IMPRESSION: 1. Unremarkable chest radiograph. RPTAT: AA .Jose Rafael Ingram MD, MD Date Time Electronically viewed and signed by .Jose Rafael Ingram MD, on 05/24/2016 08:52 .B/
[2016-05-24] MEDS ORDERED: GUAI-637 PO (09:18)
[2016-05-24] MEDS ORDERED: ACET500C5 PO (09:19)
[2016-05-24] MEDS ORDERED: OSLT75C PO (09:19)
[2016-05-24] MEDS ORDERED: ALBU8.5H3 INH (09:19)
[2016-05-24 09:24] VITALS: BP 126/88; PULSE 112; RESP 22; TEMP 100
[2016-05-25] MEDS ORDERED: OSLT75C PO (06:38)
[2016-05-25] MEDS ORDERED: GUAI120011 PO (06:39)
== END 2016-05-24 09:25 | disposition home or self-care (01) ==
LOC: FTE 07:17
DX: J10.1 Influenza due to other identified influenza virus with other respiratory manifestations (principal); R11.10 Vomiting, unspecified; F17.210 Nicotine dependence, cigarettes, uncomplicated
CPT/HCPCS: 71010; 81003; 87400; 96374; J2405; J7040; Z7502; Z7610

== ENCOUNTER 2016-05-25 02:06 | Emergency (ER) | payer OTHER ==
[~2016-05-25] VITALS: Ht 149.9 cm; Wt 54.0 kg
[~2016-05-25 02:06] MED LIST changes: +ACET500C5 PO; +ALBU8.5H3 INH; +GUAI-637 PO; +OSLT75C PO
[2016-05-25 02:11] VITALS: Ht 149.9 cm; Wt 54.0 kg
[2016-05-25] MEDS ORDERED: ACETAMINOPHEN 500 MG TAB PO STA (04:58)
[2016-05-25] MEDS ORDERED: ONDANSETRON (ODT) 4 MG TAB ODT STA (04:58)
[2016-05-25] MEDS ORDERED: IBUPROFEN 800 MG TAB PO ONE (05:00)
--- NOTE | 2016-05-25 06:23 | ERD ---
ER Documentation Chief Complaint Date/Time DATE: 05/25/16 TIME: 06:20 Chief Complaint pt reports dx with flu here yesterday. HPI This is a 20-year-old female who presents to the emergency department today complaining of fever, body aches and cough. Patient states she was seen here yesterday for the flu. Patient is requesting IV fluids. Patient states she is nauseated. States that she picked up some of her medications but she does not remember getting a prescription for Tamiflu. ROS All systems reviewed and are negative except as per history of present illness. Medications Home Meds Active Scripts Guaifenesin (Mucinex) 1,200 Mg Tab.er.12h, 1200 MG PO BID for 7 Days, TAB Prov:SHREYA MOE PA-C 05/25/16 Oseltamivir Phosphate* (Tamiflu*) 75 Mg Capsule, 75 MG PO BID for 5 Days, CAP Prov:SHREYA MOE PA-C 05/25/16 Oseltamivir Phosphate* (Tamiflu*) 75 Mg Capsule, 75 MG PO BID for 5 Days, CAP Prov:KATHLEEN CHRISTENSEN PA-C 05/24/16 Acetaminophen* (Tylophen*) 500 Mg Capsule, 2 CAP PO Q8H Y for PAIN AND OR ELEVATED TEMP, #20 CAP Prov:KATHLEEN CHRISTENSEN PA-C 05/24/16 Albuterol Sulfate* (Proair HFA*) 8.5 Gm Hfa.aer.ad, 2 PUFF INH Q4H Y for WHEEZING AND SOB, #1 INHALER Prov:KATHLEEN CHRISTENSEN PA-C 05/24/16 Guaifenesin* (Robitussin*) 100 Mg/5 Ml Syrup, 100 MG PO Q6H Y for COUGH, #1 BOTTLE Prov:KATHLEEN CHRISTENSEN PA-C 05/24/16 Ondansetron Hcl* (Zofran*) 4 Mg Tablet, 4 MG PO Q6H for NAUSEA AND/OR VOMITING, #30 TAB Prov:RAKESH SALDIVAR PA-C 04/25/16 Meclizine Hcl* (Antivert*) 12.5 Mg Tab, 12.5 MG PO Q6H Y for DIZZINESS, #20 TAB Prov:RAKESH SALDIVAR PA-C 04/25/16 Docusate Sodium* (Colace*) 100 Mg Capsule, 100 MG PO TID, #30 CAP Prov:CHOCO AVILA PA-C 04/17/16 Hydrocodone/Acetaminophen ([place] 10-325 Tablet) 1 Each Tablet, 1 TAB PO Q6H Y for PAIN, #7 TAB Prov:CHOCO AVILA PA-C 04/17/16 Nitrofurantoin Monohyd Macrocr* (Macrobid*) 100 Mg Capsr, 100 MG PO BID for 7 Days, CAP Prov:CHOCO AVILA PA-C 04/17/16 Ibuprofen* (Motrin*) 600 Mg Tab, 600 MG PO Q6, #20 TAB Prov:JAQUELINE MARES PA-C 04/05/16 Phenazopyridine Hcl* (Pyridium*) 200 Mg Tab, 200 MG PO TID Y for URINARY PAIN for 2 Days, #6 TAB Prov:JAQUELINE MARES PA-C 04/05/16 Cephalexin* (Keflex*) 500 Mg Capsule, 500 MG PO QID for 7 Days, CAP Prov:JAQUELINE MARES PA-C 04/05/16 Hydrocodone/Acetaminophen ([place] 5-325 Tablet) 1 Each Tablet, 1 EACH PO Q6, #10 TAB Prov:JAQUELINE MARES PA-C 04/05/16 Reported Medications Nifedipine* (Procardia*) 10 Mg Capsule, 10 MG PO Q6, CAP 05/29/15 Multivit/Min/Fol Ac/Iron/Pren* ( S*) 1 Tab Tab, 1 TAB PO DAILY, TAB 05/17/15 Buspirone Hcl* (Buspirone Hcl*) 10 Mg Tab, 20 MG PO BID, TAB 05/17/15 Lurasidone Hcl (LATUDA) 40 Mg Tablet, 60 MG PO HS Y for BIPOLAR for 7 Days, TAB 03/29/15 Allergies Allergies: Coded Allergies: No Known Drug Allergies (Unverified Allergy, Unknown, 05/29/15) PMhx/Soc Anesthesia Reaction: No Hx Neurological Disorder: No Hx Respiratory Disorders: Yes (exercise induced asthma) Hx Cardiac Disorders: No Hx Psychiatric Problems: Yes (depression, anxiety) Hx Miscellaneous Medical Probl: Yes (Pyelonephritis, sepsis) Hx Alcohol Use: No Hx Substance Use: No Hx Tobacco Use: Yes Smoking Status: Current every day smoker Physical Exam Vitals Vital Signs Date Time Temp Pulse Resp B/P Pulse Ox O2 Delivery O2 Flow Rate FiO2 05/25/16 02:11 102.3 121 20 121/56 98 Physical Exam Const: No acute distress Head: Atraumatic Eyes: Normal Conjunctiva ENT: Ears TMs normal. Nose no drainage. Throat no erythema no exudate. Neck: Full range of motion..~ No meningismus. Resp: Clear to auscultation bilaterally. No absent breath sounds. No wheezing. Cardio: Tachycardic, no murmurs Abd: Soft, non tender, non distended. Normal bowel sounds Skin: No petechiae or rashes Neur: Awake and alert Psych: Normal Mood and Affect Results 24 hrs Current Medications Medications (Trade) Dose Ordered Sig/Abida Route PRN Reason Start Time Stop Time Status Last Admin Dose Admin Acetaminophen (Tylenol Tab) 500 mg ONCE STAT PO 05/25/16 04:58 05/25/16 05:00 DC 05/25/16 05:22 Ibuprofen (Motrin) 800 mg ONCE ONCE PO 05/25/16 05:00 05/25/16 05:01 DC 05/25/16 05:22 Ondansetron HCl (Zofran Odt) 4 mg ONCE STAT ODT 05/25/16 04:58 05/25/16 05:00 DC 05/25/16 05:23 Procedures/MDM This is a 20-year-old female who presents the emergency department today with flulike symptoms. Patient was seen here yesterday with similar complaints and had a UA, chest x-ray and influenza swab. UA was negative for infection. Chest x-ray was negative. Patient tested positive for influenza A. Today patient returns to the emergency department. Patient had a temperature of 102.3. She was tachycardic. Her oxygen saturation is 98%. I do not feel the patient requires repeat workup given that she was just seen here yesterday. I have explained to the patient that she is going to continue to have the symptoms for about a week. Patient indicated she was living in a back shed.. Patient will be given a new prescription for Tamiflu. She is also requesting Mucinex. Patient was given oral fluids and oral rehydration here in the emergency department. Patient was given Tylenol and Motrin here in the emergency department. At this time the patient is stable for discharge and outpatient management. Patient should follow up with their PCP in the next 1-2 days. They may return to the emergency department sooner for any persistent or worsening of symptoms. Patient understood and agreed with the plan. Discussed the patient with Dr. Krishnamurthy and he recommended the patient be sent home with an albuterol inhaler. Patient indicated that she already has one. Departure Diagnosis: Primary Impression: Influenza Condition: SHREYA Reynolds PA-C May 25, 2016 06:23
[2016-05-25] MEDS ORDERED: OSLT75C PO (06:38)
[2016-05-25] MEDS ORDERED: GUAI120011 PO (06:39)
[2016-05-25 07:51] VITALS: BP 120/80; PULSE 94; RESP 18; TEMP 99
== END 2016-05-25 07:51 | disposition home or self-care (01) ==
LOC: FTE 02:06
DX: J10.1 Influenza due to other identified influenza virus with other respiratory manifestations (principal); F17.210 Nicotine dependence, cigarettes, uncomplicated; R11.0 Nausea
CPT/HCPCS: Z7502; Z7610; 99283

== ENCOUNTER 2016-10-21 13:29 | Emergency (ER) | payer OTHER ==
[~2016-10-21] VITALS: Ht 149.9 cm; Wt 58.0 kg
[~2016-10-21 13:29] MED LIST changes: +GUAI120011 PO
[2016-10-21 13:52] VITALS: Ht 149.9 cm; Wt 58.0 kg
[2016-10-21] MEDS ORDERED: DIPHENHYDRAMINE 50 MG INJ IV STA (15:00)
[2016-10-21] MEDS ORDERED: METOCLOPRAMIDE 10 MG INJ IV STA (15:00)
[2016-10-21] MEDS ORDERED: SOD CHLORIDE 0.9% 1,000 ML IV STA (15:00)
[2016-10-21] MEDS ORDERED: KETOROLAC 30 MG INJ IV STA (15:00)
--- NOTE | 2016-10-21 15:07 | ERD ---
ER Documentation Chief Complaint Date/Time DATE: 10/21/16 TIME: 15:03 Chief Complaint PT with migraine BARBOSA X 4 days. HPI Patient is a 21-year-old female with a past medical history of anxiety, depression, migraines, psychogenic seizures who presents to the ED with migraine. She states that her headache is similar to what she has experienced in the past. She states that she has had chronic migraines for the last year. She states that the pain is located on the frontal aspect of her head and radiates to the top. She also complains of nausea with no vomiting, photophobia and sensitivity to sound. She denies trauma or falls. She denies neck pain or neck stiffness. She denies fever or chills. She denies chest pain or cough or shortness of breath. She states that she has an appointment with the neurologist tomorrow. She states that she has tried ibuprofen and Tylenol which has not helped with her pain. She denies stating that this is "the worst headache of her life". ROS All systems reviewed and are negative except as per history of present illness. Medications Home Meds Active Scripts Ondansetron (Ondansetron Odt) 4 Mg Tab.rapdis, 4 MG PO Q6H Y for NAUSEA AND/OR VOMITING, #10 TAB Prov:YINA MUSE PA-C 10/21/16 Acetaminophen/Aspirin/Caffeine* (Excedrin*) 1 Tab Tab, 1 TAB PO BID for 28 Days , TAB Prov:YINA MUSE PA-C 10/21/16 Guaifenesin (Mucinex) 1,200 Mg Tab.er.12h, 1200 MG PO BID for 7 Days, TAB Prov:SHREYA MOE PA-C 05/25/16 Oseltamivir Phosphate* (Tamiflu*) 75 Mg Capsule, 75 MG PO BID for 5 Days, CAP Prov:SHREYA MOE PA-C 05/25/16 Oseltamivir Phosphate* (Tamiflu*) 75 Mg Capsule, 75 MG PO BID for 5 Days, CAP Prov:KATHLEEN CHRISTENSEN PA-C 05/24/16 Acetaminophen* (Tylophen*) 500 Mg Capsule, 2 CAP PO Q8H Y for PAIN AND OR ELEVATED TEMP, #20 CAP Prov:KATHLEEN CHRISTENSEN PA-C 05/24/16 Albuterol Sulfate* (Proair HFA*) 8.5 Gm Hfa.aer.ad, 2 PUFF INH Q4H Y for WHEEZING AND SOB, #1 INHALER Prov:KATHLEEN CHRISTENSEN PA-C 05/24/16 Guaifenesin* (Robitussin*) 100 Mg/5 Ml Syrup, 100 MG PO Q6H Y for COUGH, #1 BOTTLE Prov:KATHLEEN CHRISTENSEN PA-C 05/24/16 Ondansetron Hcl* (Zofran*) 4 Mg Tablet, 4 MG PO Q6H for NAUSEA AND/OR VOMITING, #30 TAB Prov:RAKESH SALDIVAR PA-C 04/25/16 Meclizine Hcl* (Antivert*) 12.5 Mg Tab, 12.5 MG PO Q6H Y for DIZZINESS, #20 TAB Prov:RAKESH SALDIVAR PA-C 04/25/16 Docusate Sodium* (Colace*) 100 Mg Capsule, 100 MG PO TID, #30 CAP Prov:CHOCO AVILA PA-C 04/17/16 Hydrocodone/Acetaminophen (Turon 10-325 Tablet) 1 Each Tablet, 1 TAB PO Q6H Y for PAIN, #7 TAB Prov:CHOCO AVILA PA-C 04/17/16 Nitrofurantoin Monohyd Macrocr* (Macrobid*) 100 Mg Capsr, 100 MG PO BID for 7 Days, CAP Prov:CHOCO AVILA PA-C 04/17/16 Ibuprofen* (Motrin*) 600 Mg Tab, 600 MG PO Q6, #20 TAB Prov:JAQUELINE MARES PA-C 04/05/16 Phenazopyridine Hcl* (Pyridium*) 200 Mg Tab, 200 MG PO TID Y for URINARY PAIN for 2 Days, #6 TAB Prov:JAQUELINE MARES PA-C 04/05/16 Cephalexin* (Keflex*) 500 Mg Capsule, 500 MG PO QID for 7 Days, CAP Prov:JAQUELINE MARES PA-C 04/05/16 Hydrocodone/Acetaminophen (Turon 5-325 Tablet) 1 Each Tablet, 1 EACH PO Q6, #10 TAB Prov:JAQUELINE MARES PA-C 04/05/16 Reported Medications Nifedipine* (Procardia*) 10 Mg Capsule, 10 MG PO Q6, CAP 05/29/15 Multivit/Min/Fol Ac/Iron/Pren* ( S*) 1 Tab Tab, 1 TAB PO DAILY, TAB 05/17/15 Buspirone Hcl* (Buspirone Hcl*) 10 Mg Tab, 20 MG PO BID, TAB 05/17/15 Lurasidone Hcl (LATUDA) 40 Mg Tablet, 60 MG PO HS Y for BIPOLAR for 7 Days, TAB 03/29/15 Allergies Allergies: Coded Allergies: No Known Drug Allergies (Unverified Allergy, Unknown, 05/29/15) PMhx/Soc Anesthesia Reaction: No Hx Neurological Disorder: No Hx Respiratory Disorders: Yes (exercise induced asthma) Hx Cardiac Disorders: No Hx Psychiatric Problems: Yes (depression, anxiety) Hx Miscellaneous Medical Probl: Yes (Pyelonephritis, sepsis) Hx Alcohol Use: No Hx Substance Use: No Hx Tobacco Use: Yes FmHx Family History: No coronary disease, No diabetes, No other Physical Exam Vitals Vital Signs Date Time Temp Pulse Resp B/P Pulse Ox O2 Delivery O2 Flow Rate FiO2 10/21/16 13:52 98.7 80 18 114/62 18 Physical Exam GENERAL: Well-developed, well-nourished female. Appears in no acute distress. HEAD: Normocephalic, atraumatic. EYES: Pupils are equally reactive bilaterally. EOMs grossly intact. No conjunctival erythema. ENT: Moist mucous membranes. No uvula deviation. No kissing tonsils. No exudates. NECK: Supple. No lymphadenopathy or thyromegaly. No meningismus. negative kernig. negative brudinski. LUNG: Clear to auscultation bilaterally. No rhonchi, wheezing, rales or coarse breath sounds. HEART: Regular rate and rhythm. No murmurs, rubs or gallops. Extremities: Equal pulses bilaterally. No peripheral clubbing, cyanosis or edema. No unilateral leg swelling. NEUROLOGIC: Alert and oriented. Moving all four extremities. 5/5 strength in all extremities. Normal speech. Steady gait. Cranial nerves II through XII intact. No ataxia. Negative Romberg test. SKIN: Normal color. Warm and dry. No rashes or lesions. Capillary refill < 2 seconds Result Diagram: 10/21/16 1511 10/21/16 1511 Results 24 hrs Laboratory Tests Test 10/21/16 15:11 White Blood Count 5.710^3/ul Red Blood Count 4.7110^6/ul Hemoglobin 14.2g/dl Hematocrit 41.6% Mean Corpuscular Volume 88.3fl Mean Corpuscular Hemoglobin 30.1pg Mean Corpuscular Hemoglobin Concent 34.1g/dl Red Cell Distribution Width 12.0% Platelet Count 57265^3/UL Mean Platelet Volume 9.6fl Neutrophils % 52.7% Lymphocytes % 29.0% Monocytes % 15.4% Eosinophils % 2.3% Basophils % 0.3% Nucleated Red Blood Cells % 0.0/100WBC Neutrophils # 3.010^3/ul Lymphocytes # 1.710^3/ul Monocytes # 0.910^3/ul Eosinophils # 0.110^3/ul Basophils # 0.010^3/ul Nucleated Red Blood Cells # 0.010^3/ul Sodium Level 144mmol/L Potassium Level 4.0mmol/L Chloride Level 105mmol/L Carbon Dioxide Level 24mmol/L Anion Gap 19 Blood Urea Nitrogen 14mg/dl Creatinine 0.72mg/dl Glucose Level 103mg/dl Calcium Level 9.0mg/dl Current Medications Medications (Trade) Dose Ordered Sig/Abida Route PRN Reason Start Time Stop Time Status Last Admin Dose Admin Sodium Chloride (NS) 1,000 ml @ 1,000 mls/hr Q1H STAT IV 10/21/16 15:00 10/21/16 15:59 DC 10/21/16 15:11 Metoclopramide HCl (Reglan) 10 mg ONCE STAT IV 10/21/16 15:00 10/21/16 15:03 DC 10/21/16 15:11 Ketorolac Tromethamine (Toradol) 30 mg ONCE STAT IV 10/21/16 15:00 10/21/16 15:03 DC 10/21/16 15:09 Diphenhydramine HCl (Benadryl) 25 mg ONCE STAT IV 10/21/16 15:00 10/21/16 15:03 DC 10/21/16 15:11 Procedures/MDM ER COURSE: I kept the patient and/or family informed of laboratory and diagnostic imaging results throughout the emergency room course. MEDICAL DECISION MAKING: This is a 21-year-old female who presents with headache 4 days. Vital signs were reviewed. Patient is afebrile. Patient is not hypoxic. Patient is not toxic or ill-appearing. Patient's headache is similar to what she has experienced in the past. Patient was given fluids, Toradol, Benadryl and Reglan. Patient tolerated medication well with no adverse reaction. Patient had improvement in symptoms after administration of medication. I reexamined patient and she stated improvement in her symptoms. Low suspicion for intracranial hemorrhage, meningitis, intracranial mass, concussion, temporal arteritis, stroke, elevated intracranial pressure, seizure. Risk versus benefits of a CT scan were discussed with patient and at this point the risks outweigh the benefits. Patient's headache is something she has experienced in the past and at this point I do not think a CT scan is warranted. DISCHARGE: At this time, patient is stable for discharge and outpatient management with no new complaints during the ER course. Patient was sent home with Elvis [place] to follow-up with neurologist appointment she has scheduled for tomorrow. Patient will be discharged home with instructions to recheck for new or worsening symptoms such as fever, nausea, weakness, LOC and to follow up with primary care in the next 1-2 days. Patient was advised to return to the ER for any new or worsening symptoms. Plan was discussed and patient and/or family understands and agrees. Home instructions were given. Departure Diagnosis: Primary Impression: Headache Headache type: unspecified Headache chronicity pattern: acute headache Intractability: not intractable Qualified Code: R51 - Acute nonintractable headache, unspecified headache type Condition: Stable YINA MUSE PA-C Oct 21, 2016 15:07
[2016-10-21 15:23] LABS: BASOPHILS % 0.3 % (0.0-2.0); EOSINOPHILS # 0.1 10^3/ul (0.0-0.5); EOSINOPHILS % 2.3 % (0.0-7.0); HEMATOCRIT 41.6 % (37.0-47.0); HEMOGLOBIN 14.2 g/dl (12.0-16.0); LYMPHOCYTES # 1.7 10^3/ul (0.8-2.9); MEAN CORPUSCULAR HEMOGLOBIN 30.1 pg (29.0-33.0); MEAN CORPUSCULAR HGB CONC 34.1 g/dl (32.0-37.0); MEAN CORPUSCULAR VOLUME 88.3 fl (72.0-104.0); MEAN PLATELET VOLUME 9.6 fl (7.4-10.4); MONOCYTE # 0.9 10^3/ul (0.3-0.9); MONOCYTES % 15.4 % (0.0-13.0); NEUTROPHILS % 52.7 % (30.0-74.0); PLATELET COUNT 267 10^3/UL (140-415); RED BLOOD COUNT 4.71 10^6/ul (4.20-5.40); WHITE BLOOD COUNT 5.7 10^3/ul (4.8-10.8)
[2016-10-21 15:55] LABS: CREATININE 0.72 mg/dl (0.44-1.00)
[2016-10-21] MEDS ORDERED: EXCED PO (16:31)
[2016-10-21] MEDS ORDERED: ONDA4TAB14 PO (16:32)
== END 2016-10-21 17:56 | disposition home or self-care (01) ==
LOC: FTE 13:29
DX: R51 Headache (principal); Z87.891 Personal history of nicotine dependence
CPT/HCPCS: 36415; 80048; 85025; 96374; 96375; J1200; J1885; J2765; J7030; Z7502